=== PATIENT | female | born 1975 | race Caucasian/White ===

== ENCOUNTER 2017-11-23 08:08 | Inpatient (IN) | payer MEDICAID ==
[2017-11-23] MEDS: ONDANSETRON 4 MG INJ IV ×2 (08:49→12:39)
[2017-11-23] MEDS: ACETAMINOPHEN 500 MG TAB PO (08:49)
[2017-11-23] MEDS: SOD CHLORIDE 0.9% 1,000 ML IV ×4 (08:50→23:15)
[2017-11-23] MEDS: KETOROLAC 15 MG INJ IV ×3 (08:50→23:49)
[2017-11-23] MEDS: morphine 4 MG/ML VIAL IV (08:51)
[2017-11-23 08:53] LABS: ADD MAN DIFF? NO
[2017-11-23 08:56] LABS: ABNORMAL IP MESSAGE 1; BASOPHILS % 0.2 % (0.0-2.0); EOSINOPHILS # 0.1 10^3/ul (0.0-0.5); EOSINOPHILS % 1.3 % (0.0-7.0); HEMOGLOBIN 11.3 g/dl (12.0-16.0); LYMPHOCYTES # 0.5 10^3/ul (0.8-2.9); LYMPHOCYTES % 5.1 % (15.0-51.0); MEAN CORPUSCULAR HEMOGLOBIN 24.1 pg (29.0-33.0); MEAN CORPUSCULAR HGB CONC 31.4 g/dl (32.0-37.0); MEAN CORPUSCULAR VOLUME 76.8 fl (82.0-101.0); MEAN PLATELET VOLUME 9.9 fl (7.4-10.4); MONOCYTE # 0.2 10^3/ul (0.3-0.9); MONOCYTES % 2.3 % (0.0-11.0); NEUTROPHIL # 9.1 10^3/ul (1.6-7.5); NEUTROPHILS % 90.8 % (39.0-77.0); PLATELET COUNT 226 10^3/UL (140-415); RED BLOOD COUNT 4.69 10^6/ul (4.20-5.40)
[2017-11-23 09:01] LABS: POSITIVE DIFF @See below
[2017-11-23 09:03] LABS: ADD UMIC YES; UR ASCORBIC ACID NEGATIVE (NEGATIVE); UR BACTERIA FEW /HPF (NONE SEEN); UR BILIRUBIN (Dip) NEGATIVE (NEGATIVE); UR BLOOD (Dip) 2+ mg/dL (NEGATIVE); UR CLARITY CLEAR (CLEAR); UR COLOR YELLOW (YELLOW); UR GLUCOSE (Dip) NEGATIVE (NEGATIVE); UR KETONES (Dip) NEGATIVE (NEGATIVE); UR LEUKOCYTE ESTERASE (Dip) NEGATIVE Leu/ul (NEGATIVE); UR NITRITE (Dip) NEGATIVE (NEGATIVE); UR RBC 21 /HPF (0-5); UR SPECIFIC GRAVITY (Dip) 1.013 (1.003-1.030); UR SQUAMOUS EPITHELIAL CELL FEW /HPF (FEW); UR TOTAL PROTEIN (Dip) NEGATIVE (NEGATIVE); UR UROBILINOGEN (Dip) NEGATIVE (NEGATIVE); UR WBC 0 /HPF (0-5)
[2017-11-23 09:16] LABS: ALANINE AMINOTRANSFERASE 29 IU/L (13-69); ALBUMIN 4.3 g/dl (3.3-4.9); ALBUMIN/GLOBULIN RATIO 1.19; ALKALINE PHOSPHATASE 106 IU/L (42-121); ANION GAP 17 (8-16); ASPARTATE AMINO TRANSFERASE 21 IU/L (15-46); BILIRUBIN,INDIRECT 0.2 mg/dl (0-1.1); BILIRUBIN,TOTAL 0.2 mg/dl (0.2-1.3); BLOOD UREA NITROGEN 13 mg/dl (7-20); CARBON DIOXIDE 23 mmol/L (21-31); CHLORIDE 107 mmol/L (97-110); CREATININE 0.62 mg/dl (0.44-1.00); GLUCOSE 120 mg/dl (70-220); LIPASE 83 U/L (23-300); POTASSIUM 3.5 mmol/L (3.5-5.1); SODIUM 143 mmol/L (135-144); TOTAL PROTEIN 7.9 g/dl (6.1-8.1)
[2017-11-23 09:21] LABS: LACTIC ACID 2.2 mmol/L (0.5-2.0)
[2017-11-23] MEDS ORDERED: SOD CHLORIDE 0.9% 1,000 ML IV (09:21)
[2017-11-23] MEDS: PIPER-TAZO 3.375 GM IV (PMX) 100 ML IVPB (09:36)
[2017-11-23] MEDS: HYDROmorphONE 0.5 MG/0.5 ML SYG IV ×2 (11:35→12:39)
[2017-11-23] MEDS: SOD CHLORIDE 0.9% IV (13:15)
[2017-11-23 14:29] LABS: LACTIC ACID 1.1 mmol/L (0.5-2.0)
[2017-11-23] MEDS: CEFTRIAXONE 1 GM/50 ML (PMX) 50 ML IVPB (16:15)
[2017-11-23] MEDS: METOCLOPRAMIDE 10 MG INJ IV ×2 (18:32→23:49)
[2017-11-23] MEDS: ACETAMINOPHEN 325 MG TAB PO (19:19)
[2017-11-23] MEDS: DOCUSATE SODIUM 100 MG CAP PO (21:00)
[2017-11-23] MEDS: FAMOTIDINE 20 MG TAB PO (23:49)
[2017-11-24] MEDS: ACETAMINOPHEN 325 MG TAB PO ×3 (02:29→20:15)
[2017-11-24] MEDS: SOD CHLORIDE 0.9% 1,000 ML IV ×3 (02:37→20:12)
[2017-11-24] MEDS: METOCLOPRAMIDE 10 MG INJ IV ×3 (05:33→17:31)
[2017-11-24] MEDS: KETOROLAC 15 MG INJ IV ×4 (05:33→22:03)
[2017-11-24 05:44] LABS: ADD MAN DIFF? NO
[2017-11-24 06:02] LABS: WHITE BLOOD COUNT 8.6 10^3/ul (4.8-10.8)
[2017-11-24 06:02] LABS: BASOPHILS % 0.2 % (0.0-2.0); EOSINOPHILS # 0.1 10^3/ul (0.0-0.5); EOSINOPHILS % 0.8 % (0.0-7.0); HEMATOCRIT 29.8 % (37.0-47.0); HEMOGLOBIN 9.1 g/dl (12.0-16.0); LYMPHOCYTES % 12.1 % (15.0-51.0); MEAN CORPUSCULAR HEMOGLOBIN 23.8 pg (29.0-33.0); MEAN CORPUSCULAR HGB CONC 30.5 g/dl (32.0-37.0); MEAN CORPUSCULAR VOLUME 77.8 fl (82.0-101.0); MEAN PLATELET VOLUME 9.8 fl (7.4-10.4); MONOCYTE # 0.2 10^3/ul (0.3-0.9); MONOCYTES % 2.7 % (0.0-11.0); NEUTROPHIL # 7.2 10^3/ul (1.6-7.5); NEUTROPHILS % 83.9 % (39.0-77.0); PLATELET COUNT 202 10^3/UL (140-415); RED BLOOD COUNT 3.83 10^6/ul (4.20-5.40); RED CELL DISTRIBUTION WIDTH 14.4 % (11.5-14.5)
[2017-11-24 06:39] LABS: ANION GAP 10 (8-16); BLOOD UREA NITROGEN 8 mg/dl (7-20); CALCIUM 7.6 mg/dl (8.4-10.2); CARBON DIOXIDE 23 mmol/L (21-31); CHLORIDE 113 mmol/L (97-110); CREATININE 0.56 mg/dl (0.44-1.00); GLUCOSE 87 mg/dl (70-220); POTASSIUM 3.2 mmol/L (3.5-5.1); SODIUM 143 mmol/L (135-144)
[2017-11-24] MEDS: FAMOTIDINE 20 MG TAB PO ×2 (09:00→22:03)
[2017-11-24] MEDS: DOCUSATE SODIUM 100 MG CAP PO ×2 (09:58→21:00)
[2017-11-24] MEDS: POTASSIUM CHLORIDE (SR) 20 MEQ TAB PO (12:22)
[2017-11-24] MEDS: CEFTRIAXONE 1 GM/50 ML (PMX) 50 ML IVPB (15:59)
[2017-11-24] MEDS: morphine 2 MG INJ IV (23:13)
[2017-11-25] MEDS: SOD CHLORIDE 0.9% 1,000 ML IV (04:23)
[2017-11-25] MEDS: KETOROLAC 15 MG INJ IV ×2 (04:23→09:25)
[2017-11-25 05:31] LABS: ADD MAN DIFF? NO
[2017-11-25 05:32] LABS: EOSINOPHILS # 0.3 10^3/ul (0.0-0.5); EOSINOPHILS % 6.5 % (0.0-7.0); HEMATOCRIT 28.2 % (37.0-47.0); HEMOGLOBIN 8.6 g/dl (12.0-16.0); LYMPHOCYTES # 1.5 10^3/ul (0.8-2.9); LYMPHOCYTES % 36.5 % (15.0-51.0); MEAN CORPUSCULAR HEMOGLOBIN 23.8 pg (29.0-33.0); MEAN CORPUSCULAR HGB CONC 30.5 g/dl (32.0-37.0); MEAN CORPUSCULAR VOLUME 78.1 fl (82.0-101.0); MEAN PLATELET VOLUME 10.1 fl (7.4-10.4); MONOCYTE # 0.3 10^3/ul (0.3-0.9); MONOCYTES % 6.7 % (0.0-11.0); NEUTROPHILS % 49.1 % (39.0-77.0); PLATELET COUNT 206 10^3/UL (140-415); RED BLOOD COUNT 3.61 10^6/ul (4.20-5.40); RED CELL DISTRIBUTION WIDTH 14.6 % (11.5-14.5)
[2017-11-25 05:32] LABS: WHITE BLOOD COUNT 4.2 10^3/ul (4.8-10.8)
[2017-11-25] MEDS: METOCLOPRAMIDE 10 MG INJ IV ×3 (06:00→12:00)
[2017-11-25 06:11] LABS: ANION GAP 13 (8-16); BLOOD UREA NITROGEN 9 mg/dl (7-20); CALCIUM 8.2 mg/dl (8.4-10.2); CARBON DIOXIDE 23 mmol/L (21-31); CHLORIDE 111 mmol/L (97-110); CREATININE 0.61 mg/dl (0.44-1.00); GLUCOSE 102 mg/dl (70-220); POTASSIUM 3.6 mmol/L (3.5-5.1); SODIUM 143 mmol/L (135-144)
[2017-11-25] MEDS: FAMOTIDINE 20 MG TAB PO (09:00)
[2017-11-25] MEDS: DOCUSATE SODIUM 100 MG CAP PO (09:00)
[2017-11-25] MEDS ORDERED: INFLUENZA VIRUS VACCINE 0.5 ML (DISPENSING) IM* (09:00)
[2017-11-25] MEDS: ACETAMINOPHEN 325 MG TAB PO (09:25)
[2017-11-25] MEDS: INFLUENZA VIRUS VACCINE 0.5 ML SYG IM* (15:19)
== END 2017-11-25 15:35 | disposition home or self-care (01) | DRG 694 ==
LOC: MS1 12:57 → FTE 08:08 → MS1 12:57
DX: N13.1 Hydronephrosis with ureteral stricture, not elsewhere classified (principal); E87.2 Acidosis; R65.10 Systemic inflammatory response syndrome (SIRS) of non-infectious origin without acute organ dysfunction; D25.9 Leiomyoma of uterus, unspecified; E87.6 Hypokalemia; K80.20 Calculus of gallbladder without cholecystitis without obstruction; D50.9 Iron deficiency anemia, unspecified; R19.7 Diarrhea, unspecified
CPT/HCPCS: 36415; 71045; 74176; 76705; 76856; 78226; 80048; 80053; 81001; 83605; 83690; 83735; 84100; 85025; 87040; 87086; 87400; 90686; 93005; 96365; 96366; 96375; 96376; 99291-25